=== PATIENT | female | born 1965 | race Caucasian/White ===

== ENCOUNTER 2017-02-06 10:10 | Emergency (ER) | payer OTHER ==
[~2017-02-06] VITALS: Ht 167.6 cm; Wt 50.8 kg
[~2017-02-06 10:10] MED LIST: ONDANSETRON HYDR4 MG PO; PERCOCET 325 MG1 TA2 PO; PRILOSEC 20MG C20 MG PO
[2017-02-06 10:17] VITALS: BP 118/76
[2017-02-06] MEDS ORDERED: POLYTRIM EYE DR10 ML OPH (11:25)
--- NOTE | 2017-02-06 11:26 | ED GENERAL ADULT ---
History of Present Illness General Chief Complaint: General Adult Stated Complaint: "I HAVE EYE P[AIN AMD A SALINA ON MY BACK" Source: patient Exam Limitations: no limitations Vital Signs & Intake/Output Vital Signs & Intake/Output Vital Signs Date Time Temp Pulse Resp B/P B/P Pulse O2 O2 Flow FiO2 Mean Ox Delivery Rate 02/06 1017 98.8 88 20 118/76 97 Room Air Allergies Coded Allergies: MDX - Amoxicillin (AMOXICILLIN) (HASN'T TAKEN IN A LONG TIME 10/29/12) MDX - Clarithromycin (CLARITHROMYCIN) (UNKNLOWN 03/24/13) MDX - Metronidazole (METRONIDAZOLE) (UNKNOWN 03/24/13) Uncoded Allergies: CT CONTRAST (05/17/14) Reconcile Medications Omeprazole (Prilosec) 20 MG CAPSULE.DR 20 MG PO DAILY AC GASTRITIS ONDANSETRON HCL (Ondansetron Hydrochloride) 4 MG TABLET 4 MG PO Q6 PRN NAUSEA (Reported) OXYCODONE HCL/ACETAMINOPHEN (Percocet 5-325 MG Tablet) 325 MG/5 MG TAB 1 TAB PO Q6 PRN PAIN Polytrim (Polytrim Eye Drops) 10,000 UNIT-1 MG/ML DROPS 1 GTT OPH Q6 CONJUNCTIVITIS Triage Note: PT THINKS SHE SCRATCHED HER RIGHT EYE YESTERDAY, STATES VISION IS BLURRY. C/O BLOTCHY SALINA ON HER BACK ALSO Triage Nurses Notes Reviewed? yes Onset: Gradual Duration: day(s): (1) Timing: no prior history Injury Environment: home Severity: moderate Severity Numbers: 6 No Modifying Factors: none HPI: Patient is a 52-year-old female presenting to the emergency department with chief complaint of right eye irritation and watering has been going on for the past one day. She was at a bonfire last night and when she came in she accidentally scratched her right eye. Since then has been tearing and irritating her. Denies taking anything to help with symptoms. She does not wear any contacts. Only wears glasses for reading. Denies any double vision. No headaches. No fevers or chills. She is also reporting that she noticed a rash on her back. She was outside several days ago and was exposed to the sun for prolonged period of time and started afterwards. Denies any assistive pain or itchiness. Denies taking anything help her symptoms. (KIRIT SOLIS) Past History Travel History Traveled to [place] past 21 day No Medical History Any Pertinent Medical History? see below for history Cardiovascular: hyperlipidemia, TACHYCARDIA History of MRSA: No History of VRE: No History of CDIFF: No Surgical History Surgical History: non-contributory Psychosocial History Who do you live with Family Services at Home None What is your primary language Uzbek Tobacco Use: Current Daily Use Daily Tobacco Use Amount/Type: =< 4 Cigarettes daily ETOH Use: occasional use Illicit Drug Use: denies illicit drug use Family History Family History, If Any: MOTHER Irritable colon Hx Contributory? No (KIRIT SOLIS) Review of Systems Review of Systems Constitutional: Reports: no symptoms. Comments Review of systems: See HPI, All other systems negative. Constitutional, no chills fever or weight loss HEENT:no sore throat no congestion Cardiovascular: No chest pain ,palpitation , orthopnea or ankle swelling Skin, no jaundice Respiratory: No dyspnea cough sputum or hemoptysis GI: No nausea no vomiting Muscle skeletal: no back pain, no neck pain, Neurologic: No numbness no confusion Psych: No stress anxiety or depression,. Heme/endocrine: No bruising no bleeding no polyuria or polydipsia Immunology: No splenectomy or history of AIDS (KIRIT SOLIS) Physical Exam Physical Exam General Appearance: well developed/nourished, no apparent distress, alert, awake , comfortable Comments: Well-developed well-nourished person in no acute distress HEENT: Normal EENT exam, extraocular motion intact, no nystagmus. Pupils equally round and reactive to light and accommodation. Right conjunctiva is slightly injected. No identified corneal abrasions with fluorescein stain. No foreign bodies appreciated the right eye. Nose is atraumatic. Neck: Normal inspection Back: Nontender, no CVA tenderness. Cardiovascular: Regular rate and rhythms no murmurs rubs or gallops, normal JVP Respiratory: Chest nontender. No respiratory distress.breath sounds clear to auscultation bilaterally Extremity: No edema Neuro: Alert oriented x3, motor sensory normaL Skin: Hyperpigmented rash noted of the lumbar area of the back. Nontender. Flat. Appears to be in a teleCTAGIA pattern. Blanchable rash. Psych: Mood and affect is normal, memory and judgment is normal. Core Measures ACS in differential dx? No CVA/TIA Diagnosis: No Severe Sepsis Present: No Septic Shock Present: No (KIRIT SOLIS) Progress Differential Diagnoses I considered the following diagnoses in my evaluation of the patient: Corneal abrasion, conjunctivitis, chemical burn, foreign body sensation, nonspecific rash, thermal burn Plan of Care: 02/06/2017 11:23:46 AM patient feeling better after tetracaine drops. No obvious corneal abrasion identified. Foreign bodies. Patient will be treated prophylactically with Polytrim drops. As far as the rash on her back goes appears to be related to excessive thermal exposure. Patient also reports that she wears spanks that are too tight for her. She will avoid wearing these and she will avoid sun exposure. She'll follow with her primary care physician. Patient nontoxic. Initial ED EKG: none (KIRIT SOLIS) Departure Departure Time of Disposition: 1123 Disposition: HOME OR SELF CARE Condition: Stable Clinical Impression Primary Impression: Conjunctivitis Qualifiers: Conjunctivitis type: unspecified Laterality: right Qualified Code: H10.9 - Unspecified conjunctivitis Secondary Impressions: Rash and nonspecific skin eruption Referrals: RIA SANDOVAL (PCP/Family) Additional Instructions: Follow-up with your primary care physician: Call to make an appointment. Use eye drops as prescribed. Take anti-inflammatories [id number]. Return for worsening symptoms or concerns. Departure Forms: Customer Survey General Discharge Information Prescriptions: Current Visit Scripts Polytrim (Polytrim Eye Drops) 1 GTT OPH Q6 #10 ML (KIRIT SOLIS) PA/PASSENGER SERVICE SUPERVISOR Co-Sign Statement Statement: ED Attending supervision documentation- [] I saw and evaluated the patient. I have also reviewed all the pertinent lab results and diagnostic results. I agree with the findings and the plan of care as documented in the PA's/PASSENGER SERVICE SUPERVISOR's documentation. [x] I have reviewed the ED Record and agree with the PA's/PASSENGER SERVICE SUPERVISOR's documentation. [] Additions or exceptions (if any) to the PAs/PASSENGER SERVICE SUPERVISOR's note and plan are summarized below: [] (YEN WHITFIELD DO) Critical Care Note Critical Care Note Critical Care Time: non-applicable (KIRIT SOLIS)
== END 2017-02-06 11:32 ==
LOC: ERH 10:10
DX: H10.9 Unspecified conjunctivitis (principal); R21 Rash and other nonspecific skin eruption